=== PATIENT | male | born 1955 | race Caucasian/White ===

== ENCOUNTER 2017-03-24 03:08 | Emergency (ER) | payer BC, OTHER ==
[~2017-03-24] VITALS: Ht 172.7 cm; Wt 72.6 kg
--- NOTE | 2017-03-24 03:23 | NUR ---
..PT BIB [facility] TO ER BED 8, PT C/O OF CHRONIC BACK PAIN. 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 VSS/RESP EVEN UNLABORED/NAD NOTED/SKIN WARM AND DRY/DENIES N/V/D/AOX4.
[2017-03-24] MEDS ORDERED: BUPIVACAINE 0.5 % PF 150 MG/30 ML VIAL ONE (03:33)
[2017-03-24] MEDS ORDERED: BUPIVACAINE 0.5 % PF 150 MG/30 ML VIAL IJ ONE (04:00)
--- NOTE | 2017-03-24 04:33 | NUR ---
ASSISTED MD AT BEDSIDE WITH PROCEDURE. PT TOLERATED WELL.
--- NOTE | 2017-03-24 04:52 | NUR ---
Patient discharged to home in stable condition. Written and verbal after care instructions given. Patient verbalizes understanding of instruction. Pt ambulatory with a steady gait.
[2017-03-24 04:54] VITALS: BP 133/78
== END 2017-03-24 04:55 | disposition home or self-care (01) ==
LOC: ER 03:09
DX: G89.29 Other chronic pain (principal); M54.5 Low back pain; M62.830 Muscle spasm of back; I10 Essential (primary) hypertension; F32.9 Major depressive disorder, single episode, unspecified
CPT/HCPCS: 20552; 99284; A4606; A6403; J3490; Z7610

== ENCOUNTER 2017-07-21 23:03 | Emergency (ER) | payer OTHER ==
[~2017-07-21] VITALS: Ht 180.3 cm; Wt 79.8 kg
--- NOTE | 2017-07-21 23:29 | NUR ---
BIBSELF C/O "DIARRHEA SINCE SUNDAY, GREEN AND SMELLS BAD" ON ATROPIN SINCE SUNDAY. DENIES ABD AT THIS TIME. PT AMBULATORY TO ER BED 3. PT AOX3 RR EVEN AND UNLABORED. NO SOB NOTED. NAD NOTED. NO NVD AT THIS TIME. PT GOWNED AND PLACED ON MONITOR WAITING FOR MD YANG.
[2017-07-22] MEDS ORDERED: IV NS 0.9% 1,000 ML BAG IV ONE
[2017-07-22] MEDS ORDERED: ONDANSETRON HCL/PF 4 MG/2 ML VIAL IVP ONE
--- NOTE | 2017-07-22 00:22 | NUR ---
RAC 18G PLACED WITH LABS/CULTURE DRAWN.
[2017-07-22 00:23] LABS: BASOPHILS % (AUTO) 0.5 % (0.0-2.0); EOSINOPHILS # (AUTO) 0.3 /CMM (0.0-0.7); EOSINOPHILS % (AUTO) 3.7 % (0.0-6.0); HEMATOCRIT 43 % (39-51); HEMOGLOBIN 14.7 g/dL (13.5-17.5); LYMPHOCYTES # (AUTO) 2.9 /CMM (0.8-4.8); LYMPHOCYTES % (AUTO) 37.4 % (20.0-44.0); MEAN CORPUSCULAR HEMOGLOBIN 30 PG (26.0-33.0); MEAN CORPUSCULAR HGB CONC 35 g/dl (31.0-36.0); MEAN CORPUSCULAR VOLUME 87 fL (80-96); MONOCYTES # (AUTO) 0.7 /CMM (0.1-1.30); MONOCYTES % (AUTO) 9.7 % (2.0-12.0); NEUTROPHILS # (AUTO) 3.8 /CMM (1.8-8.9); NEUTROPHILS % (AUTO) 48.7 % (43.0-81.0); PLATELET COUNT (AUTO) 283 /CMM (150-450); RDW COEFFICIENT OF VARIATION 13.6 (11.5-15.0); RED BLOOD CELL COUNT(AUTO) 4.87 MIL/uL (4.5-6.0); WHITE BLOOD COUNT (AUTO) 7.7 K/uL (4.3-11.0)
--- NOTE | 2017-07-22 00:31 | NUR ---
PT REFUSED ZOFRAN IVP. RISK AND BENEFITS EXPLAINED, PT STATES I DONT FEEL NAUSEOUS AT THIS TIME.
--- NOTE | 2017-07-22 00:40 | NUR ---
07/22/2017 12:38AM WENT TO GET PATIENT FOR CAT SCAN, PT REFUSED EXAM. SAID THAT IT WAS TO MUCH RADIATION. TOLD RN.
[2017-07-22 00:42] LABS: CALCIUM, SERUM 9.8 mg/dL (8.5-10.1); CREATININE 1.1 mg/dL (0.6-1.3); POTASSIUM 4.3 mmol/L (3.5-5.1)
[2017-07-22 00:48] LABS: ALBUMIN 3.5 g/dL (3.4-5.0); BILIRUBIN,DIRECT 0.1 mg/dL (0.0-0.2); BILIRUBIN,TOTAL 0.4 mg/dL (0.2-1.0); TOTAL PROTEIN, SERUM 8.1 g/dL (6.4-8.2)
--- NOTE | 2017-07-22 00:50 | NUR ---
PT REFUSED CT SCAN, EDUCATED ON NEED FOR CT SCAN, BUT PT STILL REFUSED. NOTIFIED
--- NOTE | 2017-07-22 02:17 | NUR ---
IV removed. Catheter intact and site benign. Pressure and 4x4 applied to site. No bleeding noted. ambulatory with a steady gait. Patient discharged to home in stable condition. Written and verbal after care instructions given. Patient verbalizes understanding of instruction.
[2017-07-22 02:18] VITALS: BP 150/87
== END 2017-07-22 02:19 | disposition home or self-care (01) ==
LOC: ER 23:05
DX: R19.7 Diarrhea, unspecified (principal); E11.9 Type 2 diabetes mellitus without complications; I10 Essential (primary) hypertension; F32.9 Major depressive disorder, single episode, unspecified; G89.29 Other chronic pain
CPT/HCPCS: 36415; 80048; 80076; 83690; 85025; 85730; 96360; 99284; A4606; Z7610

== ENCOUNTER 2019-04-25 07:13 | Emergency (ER) | payer OTHER ==
[~2019-04-25] VITALS: Ht 180.3 cm; Wt 81.6 kg
--- NOTE | 2019-04-25 07:35 | NUR ---
REPORTS "AN=330" AND "HIGH" BLOOD PRESSURE AT HOME. BEEN FEELING WEAK X1 DAY. PATIENT A/OX4, BREATHING EVEN AND UNLABORED, NO SOB NOTED, AMBULATORY WITH STEADY GAIT. NO DISTRESS NOTED.
--- NOTE | 2019-04-25 07:45 | NUR ---
DR. HALEY AT BEDSIDE FOR EVAL.
--- NOTE | 2019-04-25 07:53 | NUR ---
Patient does not wish to proceed with medical care recommended by Dr. HALEY. Patient given information related to possible complications, up to and including , which could occur as a result of leaving the hospital at this time. Patient verbalizes understanding of risks involved due to leaving against medical advice. Patient has signed AMA form.
[2019-04-25 07:58] VITALS: BP 137/84
== END 2019-04-25 07:58 | disposition left against medical advice (07) ==
LOC: ER 07:16
DX: E11.65 Type 2 diabetes mellitus with hyperglycemia (principal); I10 Essential (primary) hypertension; G89.29 Other chronic pain; F32.9 Major depressive disorder, single episode, unspecified

== ENCOUNTER 2021-05-22 07:38 | Emergency (ER) | payer OTHER ==
[~2021-05-22] VITALS: Ht 180.3 cm; Wt 81.6 kg
--- NOTE | 2021-05-22 07:38 | NUR ---
PT BIBRA 88 FROM HOME C/O SOB AND WEAKNESS X 1 WEEK. PT IS AAOX4, NOT IN RESPIRATORY DISTRESS, HOOKED TO CAPTAIN/AIRLINE PILOT, KEPT RESTED AND COMFORTABLE. WILL CONTINUE TO MONITOR.
--- NOTE | 2021-05-22 07:50 | NUR ---
AT BEDSIDE FOR EVAL.
[2021-05-22] MEDS ORDERED: ACETAMINOPHEN ES 500 MG TABLET PO ONE (08:00)
--- NOTE | 2021-05-22 08:00 | NUR ---
PT REFUSED BLOOD TEST. AWARE.
--- NOTE | 2021-05-22 08:10 | NUR ---
PT DECLINED EKG. STATES "I JUST HAD ONE IN THE AMBULANCE."
[2021-05-22] MEDS ORDERED: ACETAMINOPHEN ES 500 MG TABLET ONE (08:15)
--- NOTE | 2021-05-22 08:20 | NUR ---
PATIENT REFUSE BLOOD DRAW, ONLY CONSENTED TO COVID SWAB, RECIEVED AND PROCESSING
[2021-05-22 08:39] VITALS: BP 141/72
--- NOTE | 2021-05-22 08:39 | NUR ---
Patient does not wish to proceed with medical care recommended by Dr. Martinez. Patient given information related to possible complications, up to and including , which could occur as a result of leaving the hospital at this time. Patient verbalizes understanding of risks involved due to leaving against medical advice. Patient has signed AMA form.
== END 2021-05-22 08:50 | disposition left against medical advice (07) ==
LOC: ER 07:48
DX: R06.02 Shortness of breath (principal); Z20.822 Contact with and (suspected) exposure to COVID-19; I10 Essential (primary) hypertension; E11.51 Type 2 diabetes mellitus with diabetic peripheral angiopathy without gangrene; I25.10 Atherosclerotic heart disease of native coronary artery without angina pectoris; F32.A Depression, unspecified
CPT/HCPCS: 87426; 99283; C9803

== ENCOUNTER 2022-10-22 16:53 | Emergency (ER) | payer MEDICARE, OTHER ==
--- NOTE | 2022-10-22 17:41 | NUR ---
PT LEFT WITHOUT BEING TRIAGED.
== END 2022-10-22 17:42 | disposition left against medical advice (07) ==
LOC: ER 16:56
DX: Z53.21 Procedure and treatment not carried out due to patient leaving prior to being seen by health care provider (principal)

== ENCOUNTER → 2024-04-25 | Emergency (ER) | payer MEDICARE, OTHER ==
[~2024-04-25] VITALS: Ht 205.7 cm; Wt 74.4 kg
[~2024-04-25] MED LIST: ACETAMINOPHEN ES 500 MG TABLET ONE; LIDOCAINE 1%-EPI 1:100,000 20 ML VIAL ONE; TDAP [DIPH/PERTUSSIS/TET] 0.5 ML VIAL IM ONE
[2024-04-25] MEDS: LIDOCAINE 1%-EPI 1:100,000 50 ML VIAL IJ ONE (18:02)
[2024-04-25] MEDS: TDAP [DIPH/PERTUSSIS/TET] 0.5 ML VIAL IM ONE (18:03)
[2024-04-25] MEDS: ACETAMINOPHEN ES 500 MG TABLET PO ONE (18:03)
[2024-04-25 19:05] VITALS: BP 120/71; TEMP 98.3; O2SAT 95
== END | disposition home or self-care (01) ==
LOC: ER 17:30
DX: S01.81XA Laceration without foreign body of other part of head, initial encounter (principal); E11.9 Type 2 diabetes mellitus without complications; I10 Essential (primary) hypertension; F32.A Depression, unspecified; W01.0XXA Fall on same level from slipping, tripping and stumbling without subsequent striking against object, initial encounter; Y93.89 Activity, other specified; Y92.89 Other specified places as the place of occurrence of the external cause; Y99.8 Other external cause status
CPT/HCPCS: 12011; 90471; 90715; 99283; A6403; J3490